=== PATIENT | female | born 2000 | race Caucasian/White ===

== ENCOUNTER 2020-12-30 21:49 | Outpatient (CLI) | payer MEDICAID ==
[~2020-12-30] VITALS: Ht 152.4 cm; Wt 41.2 kg
--- NOTE | 2020-12-30 21:52 | NUR ---
PT ARRIVES VIA WHEELCHAIR TO UNIT C/O LOWER ABDOMINAL PAIN. PLACED ON EFM/TOCO. CATEGORY 1 STRIP WITH IRREGULAR CONTRACTIONS NOTED Q1.5-2MIN AT TIMES. SVE CLOSED UPON ARRIVAL. HEALTH ASSESSMENT COMPLETED. DENIES ANY HEALTH ISSUES. REPORTS GERD WITH THIS BUT DENIES ANY PAST SURGERY OR MEDICAL HISTORY OUTSIDE OF BEING AND GERD. DENIES LEAKING OF FLUID. REPORTS POSITIVE MOVEMENT. CONTRACTIONS STARTED THIS EVENING IN [place] AROUND 1700. SEE PHYS. NOTIFICATION.
[2020-12-30 22:15] VITALS: BP 111/74; PULSE 93; TEMP 98
[2020-12-30] MEDS ORDERED: PRENATAL (22:38)
[2020-12-30] MEDS ORDERED: TYLENOL 500MG500 MG PO (22:39)
[2020-12-30 22:45] VITALS: BP 107/61; PULSE 86
[2020-12-30 23:30] VITALS: BP 133/73; PULSE 87; TEMP 97.9
[2020-12-30 23:42] LABS: COLLECTION METHOD CLEAN CATCH
[2020-12-30 23:45] VITALS: PULSE 125
[2020-12-31] VITALS: BP 121/68; PULSE 160
[2020-12-31 00:04] LABS: MUCOUS Present /lpf; PH 8 (5-8); URINE APPEARANCE Clear; URINE BACTERIA Rare /hpf; URINE BILIRUBIN Negative (NEGATIVE); URINE BLOOD Negative (NEGATIVE); URINE COLOR Straw; URINE GLUCOSE Negative (NEGATIVE); URINE KETONE Negative (NEGATIVE); URINE LEUKOCYTE ESTERASE 2+ (NEGATIVE); URINE NITRATE Negative (NEGATIVE); URINE PROTEIN(semi-quant) Negative (NEGATIVE); URINE RBC 0-2 /hpf; URINE UROBILINOGEN Negative (NEGATIVE)
[2020-12-31 00:15] VITALS: PULSE 152
[2020-12-31 00:30] VITALS: PULSE 138
[2020-12-31 00:45] VITALS: PULSE 121
[2020-12-31 00:58] VITALS: PULSE 119; TEMP 98.2
--- NOTE | 2020-12-31 01:05 | NUR ---
DISCHARGE INSTRUCTIONS PROVIDED AND UNDERSTOOD TO PT AND SPOUSE. PT INSTRUCTED TO RETURN TO [facility] AM FOR SECOND STEROID INJECTION AND NST. AGREEABLE TO RETURN AT 0800 Saturday01/01/21. PT EDUCATED IN DEPTH TO RETURN TO ER WITH WORSENING SYMPTOMS, CONTRACTIONS, LEAKING OF FLUID, OR IF SHE FEELS THE BABY HAS STOPPED MOVING. PT AGREEABLE AND STATES HER UNDERSTANDING. PT REPORTS SHE IS "FEELING MUCH BETTER" FOLLOWING [facility] ADMINISTR[facility]. SEE PHYS.NOTIFICATIONS.
== END 2020-12-31 01:06 | disposition home or self-care (01) ==
LOC: LDRO 21:49 → LDR 22:48 → LDRO 12-31 01:06
PROVIDERS: Student in an Organized Health Care Education/Training Program
DX: Z34.93 Encounter for supervision of normal pregnancy, unspecified, third trimester (principal); Z3A.30 30 weeks gestation of pregnancy
CPT/HCPCS: OP; J0702; J3105; J7120

== ENCOUNTER 2020-12-31 22:29 | Outpatient (CLI) | payer MEDICAID ==
[~2020-12-31] VITALS: Ht 152.4 cm; Wt 40.9 kg
[~2020-12-31 22:29] MED LIST: PRENATAL; TYLENOL 500MG500 MG PO
[2020-12-31 23:15] VITALS: BP 95/54; PULSE 99; TEMP 98.4
--- NOTE | 2020-12-31 23:20 | NUR ---
2245 G1 at 30.5 weeks gestation to LDR5 with for 2nd betamethasone injection. EFMs applied. FHR 150 bpm and reactive. Irregular contractions per toco and patient reports. Patient reports good movement, she denies leaking of fluid or vaginal bleeding. She states that she has been recording her contractions today and that she has one contraction about every 2 hours. Advised patient that it is normal to have occasional contractions and that we would want her to call the office or return to L&D if she is having more than 6 contractions in an hour. Also encouraged patient to increase water intake. 2nd betamethasone injection as documented in emar. Discharge instructions reviewed with patient and spouse. Quetions invited and answered. Patient discharged home at 2320.
== END 2020-12-31 23:20 | disposition home or self-care (01) ==
LOC: LDRO 22:29 → EDSTATUS 22:31 → LDR 22:42 → LDRO 23:20
DX: O99.323 Drug use complicating pregnancy, third trimester (principal); Z3A.30 30 weeks gestation of pregnancy
CPT/HCPCS: OP; J0702